=== PATIENT | male | born 1995 | race Caucasian/White ===

== ENCOUNTER 2020-09-04 17:55 | Emergency (ER) | payer OTHER ==
[~2020-09-04] VITALS: Ht 195.6 cm; Wt 158.8 kg
[~2020-09-04 17:55] MED LIST: NOHOMEMEDICATIONS; NORCO 5-325 TA1 EACH PO
[2020-09-04] MEDS ORDERED: ULTRAM50 MG PO (18:15)
[2020-09-04] MEDS ORDERED: MEDROLDOSEPACK PO (18:15)
[2020-09-04] MEDS ORDERED: ROBAXIN 750 MG750 MG PO (18:15)
[2020-09-04 18:39] VITALS: BP 136/97
== END 2020-09-04 18:40 | disposition home or self-care (01) ==
LOC: M.ERS 17:55
DX: M54.16 Radiculopathy, lumbar region (principal); F17.210 Nicotine dependence, cigarettes, uncomplicated